=== PATIENT | male | born 1965 | race Caucasian/White ===

== ENCOUNTER → 2021-07-01 14:59 | Outpatient (BNVA) | payer MEDICARE, MEDICAID, SELFPAY | PROVIDERS: PCP Internal Medicine; Visit Provider Nurse Practitioner Family | DX: M47.9 Spondylosis, unspecified (principal); H47.10 Unspecified papilledema; Z79.899 Other long term (current) drug therapy | CPT/HCPCS: 99212 ==

== ENCOUNTER → 2022-01-06 12:56 | Outpatient (BNVA) | payer MEDICARE, MEDICAID, SELFPAY | PROVIDERS: Visit Provider Nurse Practitioner Family | DX: H47.10 Unspecified papilledema (principal); M47.9 Spondylosis, unspecified; Z79.899 Other long term (current) drug therapy | CPT/HCPCS: 99212 ==